=== PATIENT | female | born 1990 | race Caucasian/White ===

== ENCOUNTER 2016-11-30 14:16 | Inpatient (IN) | payer OTHER ==
[2016-11-30] VITALS (439 sets, daily range): BP systolic 106–108; BP diastolic 61–71; PULSE 77–81; TEMP 97.9–98; O2SAT 76–100
[~2016-11-30] VITALS: Ht 165.1 cm; Wt 89.9 kg
[2016-11-30] MEDS ORDERED: SINGULAIR 110 MG/TAB PO (15:34)
[2016-11-30] MEDS ORDERED: PRILOSEC 20MG20 MG PO (15:34)
[2016-11-30] MEDS ORDERED: LEXAPRO 10MG10 MG PO (15:34)
[2016-11-30] MEDS ORDERED: ALBUTEROL0.83 MG/ML IH (15:35)
[2016-11-30] MEDS ORDERED: ZOFRAN 4MG T4 MG/TAB PO (15:36)
[2016-11-30] MEDS ORDERED: PROAIR HFA0.09 MG/AC IH (15:36)
[2016-11-30 16:34] LABS: MEAN CELL VOLUME 96 fl (80.0-100.0); MEAN CORPUSCULAR HGB CONC 34 g/dl (33.0-37.0); MEAN PLATELET VOLUME 9.6 fl (7.4-10.4); PLATELET COUNT 239 K/mm3 (130-400); RED BLOOD COUNT 3.67 M/mm3 (4.10-5.30); REDCELL DISTRIBUTION WIDTH-CV 12.7 % (11.5-14.5); WHITE BLOOD COUNT 8.7 K/mm3 (4.8-10.8)
[2016-11-30 16:40] LABS: ADD PATHOLOGY DIFF REVIEW NO; HEMATOCRIT 35.2 % (37.0-47.0); HEMOGLOBIN 11.8 g/dl (12.5-16.0); MEAN CORPUSCULAR HEMOGLOBIN 32 pg (27.0-31.0)
[2016-11-30 16:43] LABS: ADJUSTED CALCIUM 9.5 mg/dL (8.4-10.2); ALBUMIN 3.3 gm/dL (3.5-5.0); BILIRUBIN,TOTAL 0.7 mg/dL (0.0-1.0); CALCIUM 8.9 mg/dL (8.4-10.2); CREATININE, serum 0.74 mg/dL (0.52-1.25); POTASSIUM 3.7 mmol/L (3.4-5.0); TOTAL PROTEIN 6.3 gm/dL (6.4-8.2)
[2016-11-30 16:43] LABS: ARTERIAL BLD GAS O2 SATURATION 94.2 % (92-100); ARTERIAL BLD GAS TCO2 CT 24.6; ARTERIAL BLOOD GAS BASE EXCESS 0.4 (-2-2); ARTERIAL BLOOD GAS HCO3 23.6 meq/L (22-26); ARTERIAL BLOOD GAS PHT 7.47 C (7.35-7.45); ARTERIAL BLOOD GAS PO2 69.9 mmHg (80-100); ARTERIAL BLOOD GAS PO2T 69.9 (80-100); ARTERIAL BLOOD GAS pH 7.47 (7.35-7.45); OXYHEMOGLOBIN 93.5 %
[2016-11-30 16:44] LABS: ATS? YES
[2016-11-30 16:59] LABS: BAND 5 % (0-10); METAMYELOCYTE 1 % (0-0); NEUTROPHILS 78 % (42.0-75.2); PLATELET ESTIMATE NORMAL (NORMAL); TOTAL CELLS COUNTED 100
[2016-11-30 20:40] LABS: INFLUENZA B NEGATIVE
[2016-12-01] VITALS (1117 sets, daily range): BP systolic 91–119; BP diastolic 59–81; PULSE 59–92; TEMP 97.8–98.1; O2SAT 49–100
[2016-12-01 06:13] LABS: MEAN CELL VOLUME 97 fl (80.0-100.0); MEAN CORPUSCULAR HGB CONC 33 g/dl (33.0-37.0); MEAN PLATELET VOLUME 9.7 fl (7.4-10.4); PLATELET COUNT 252 K/mm3 (130-400); RED BLOOD COUNT 3.76 M/mm3 (4.10-5.30); REDCELL DISTRIBUTION WIDTH-CV 12.6 % (11.5-14.5); WHITE BLOOD COUNT 6.5 K/mm3 (4.8-10.8)
[2016-12-01 06:18] LABS: ADD PATHOLOGY DIFF REVIEW NO; HEMATOCRIT 36.4 % (37.0-47.0); HEMOGLOBIN 11.9 g/dl (12.5-16.0); MEAN CORPUSCULAR HEMOGLOBIN 32 pg (27.0-31.0)
[2016-12-01 06:28] LABS: CALCIUM 8.7 mg/dL (8.4-10.2); CREATININE, serum 0.76 mg/dL (0.52-1.25); MAGNESIUM 2.2 mg/dL (1.6-2.3); PHOSPHOROUS 4.3 mg/dL (2.5-4.5); POTASSIUM 3.8 mmol/L (3.4-5.0)
[2016-12-01 06:53] LABS: BAND 6 % (0-10); METAMYELOCYTE 1 % (0-0); NEUTROPHILS 84 % (42.0-75.2); PLATELET ESTIMATE NORMAL (NORMAL); TOTAL CELLS COUNTED 100
[2016-12-02] VITALS (739 sets, daily range): BP systolic 99–127; BP diastolic 59–71; PULSE 64–115; TEMP 97.4–98.2; O2SAT 30–100
[2016-12-02 05:56] LABS: BASO % 0.2 % (0.0-2.0); GRAN # 7.8 (1.4-6.5); GRAN % 84.3 % (42.2-75.2); HEMOGLOBIN 12.9 g/dl (12.5-16.0); LYMPH # 0.9 (1.2-3.4); MEAN CELL VOLUME 95 fl (80.0-100.0); MEAN CORPUSCULAR HEMOGLOBIN 32 pg (27.0-31.0); MEAN CORPUSCULAR HGB CONC 34 g/dl (33.0-37.0); MEAN PLATELET VOLUME 9.5 fl (7.4-10.4); MONO # 0.1 (0.1-0.6); MONO % 0.9 % (1.7-9.3); PLATELET COUNT 238 K/mm3 (130-400); RED BLOOD COUNT 4.01 M/mm3 (4.10-5.30); REDCELL DISTRIBUTION WIDTH-CV 12.6 % (11.5-14.5); WHITE BLOOD COUNT 9.2 K/mm3 (4.8-10.8)
[2016-12-02 06:08] LABS: CALCIUM 8.7 mg/dL (8.4-10.2); POTASSIUM 3.6 mmol/L (3.4-5.0)
[2016-12-02 06:25] LABS: CREATININE, serum 0.74 mg/dL (0.52-1.25)
[2016-12-03 04:34] VITALS: BP 115/66; PULSE 57; TEMP 98.5
[2016-12-03 06:55] LABS: HEMOGLOBIN 12.5 g/dl (12.5-16.0); MEAN CELL VOLUME 95 fl (80.0-100.0); MEAN CORPUSCULAR HEMOGLOBIN 32 pg (27.0-31.0); MEAN CORPUSCULAR HGB CONC 34 g/dl (33.0-37.0); MEAN PLATELET VOLUME 9.6 fl (7.4-10.4); PLATELET COUNT 219 K/mm3 (130-400); RED BLOOD COUNT 3.89 M/mm3 (4.10-5.30); REDCELL DISTRIBUTION WIDTH-CV 12.8 % (11.5-14.5); WHITE BLOOD COUNT 9.9 K/mm3 (4.8-10.8)
[2016-12-03 06:56] LABS: ADD PATHOLOGY DIFF REVIEW NO; HEMATOCRIT 36.9 % (37.0-47.0)
[2016-12-03 07:07] LABS: CALCIUM 8.2 mg/dL (8.4-10.2); CREATININE, serum 0.72 mg/dL (0.52-1.25); POTASSIUM 3.6 mmol/L (3.4-5.0)
[2016-12-03 08:25] LABS: NEUTROPHILS 76 % (42.0-75.2); TOTAL CELLS COUNTED 100
[2016-12-03 08:26] LABS: PLATELET ESTIMATE NORMAL (NORMAL)
[2016-12-03 09:00] VITALS: BP 112/71; PULSE 64; TEMP 97.8
[2016-12-03 09:15] VITALS: BP 116/79; PULSE 65
[2016-12-03 10:00] VITALS: BP 117/68; PULSE 70
[2016-12-03 10:15] VITALS: PULSE 64
[2016-12-03] MEDS ORDERED: LEVAQUIN 750MG750 M1 PO (10:44)
[2016-12-03] MEDS ORDERED: SINGULAIR 110 MG/TAB PO (10:47)
[2016-12-03] MEDS ORDERED: 00186-0370-20 IH (10:52)
[2016-12-03] MEDS ORDERED: PREDNISONE20 MG PO (10:56)
[2016-12-17 15:35] LABS: IGE RECEPTOR AB 2 (())
== END 2016-12-03 12:14 | disposition home or self-care (01) | DRG 164 ==
LOC: ICU 14:16 → IMCU 15:15 → MEDICAL 12-02 13:16
PROVIDERS: Internal Medicine; Internal Medicine Pulmonary Disease
PROC: 0B958ZZ Drainage of Right Middle Lobe Bronchus, Via Natural or Artificial Opening Endoscopic (ICD-10-PCS; 2016-12-01)
PROC: 0B968ZZ Drainage of Right Lower Lobe Bronchus, Via Natural or Artificial Opening Endoscopic (ICD-10-PCS; 2016-12-01)
PROC: 0B988ZZ Drainage of Left Upper Lobe Bronchus, Via Natural or Artificial Opening Endoscopic (ICD-10-PCS; 2016-12-01)
PROC: 0B9B8ZZ Drainage of Left Lower Lobe Bronchus, Via Natural or Artificial Opening Endoscopic (ICD-10-PCS; 2016-12-01)
PROC: 0B948ZZ Drainage of Right Upper Lobe Bronchus, Via Natural or Artificial Opening Endoscopic (ICD-10-PCS; principal; 2016-12-01 13:00)
PROC: 0B968ZZ Drainage of Right Lower Lobe Bronchus, Via Natural or Artificial Opening Endoscopic (ICD-10-PCS; 2016-12-03)
PROC: 0B9B8ZZ Drainage of Left Lower Lobe Bronchus, Via Natural or Artificial Opening Endoscopic (ICD-10-PCS; 2016-12-03)
DX: J96.01 Acute respiratory failure with hypoxia (principal); J45.21 Mild intermittent asthma with (acute) exacerbation; J20.9 Acute bronchitis, unspecified; F17.210 Nicotine dependence, cigarettes, uncomplicated
CPT/HCPCS: 99223-AI; 99232-AI; 99239; C1751; J1644; J1650; J1956; J2704; J2920; J2930; J7120